=== PATIENT | female | born 1980 | race Caucasian/White ===

== ENCOUNTER 2019-05-22 19:53 | Emergency (ER) | payer SELFPAY ==
[2019-05-22 20:11] VITALS: BP 153/89
[2019-05-22] MEDS ORDERED: IBUPROFEN 600 MG TABLET PO ONE (21:42)
[2019-05-22] MEDS ORDERED: PENICILLIN V POTASSIUM 500 MG TABLET PO ONE (21:42)
[2019-05-22] MEDS ORDERED: LIDOCAINE 2% VISCOUS SOLN 20 ML UDCUP PO ONE (21:42)
--- NOTE | 2019-05-22 21:42 | ER Document Report ---
HPI - HPI Time Seen by Provider: 05/22/19 21:34 Pain Level: 4 Context: Patient is a 39-year-old female who presents to the emergency department with a chief complaint of tooth pain to teeth #13,14, 15, 20, 19, and 18. Patient has been dealing with this for the past few months. Patient has not seen a dentist in a while. She is new to the area and is looking for one. She has a past medical history of COPD and hepatitis C. Denies any difficulty breathing, shortness of breath, or any other symptoms at this time. She admits to taking some of her daughter's old amoxicillin to help with the pain, but has had little relief. - ROS Notes: REVIEW OF SYSTEMS: CONSTITUTIONAL : Denies recent illness. Denies recent unintentional weight loss. Denies fever, chills, or sweats. EENT: See HPI CARDIOVASCULAR: Denies chest pain. RESPIRATORY: Denies shortness of breath, cough, congestion, difficulty breathing, or wheezing. GASTROINTESTINAL: Denies nausea, vomiting, and diarrhea. Denies abdominal pain. Denies constipation. GENITOURINARY: Denies difficulty urinating, burning, blood in urine, urgency or frequency. MUSCULOSKELETAL: Denies neck and back pain. Denies joint pain or swelling. SKIN: Denies rash, itchiness, or lesions HEMATOLOGIC : Denies easy bruising or bleeding. LYMPHATIC: Denies swollen, painful, enlarged glands. NEUROLOGICAL: Denies no numbness or tingling denies weakness. Denies headache. Denies altered mental status. Denies alteration in speech. PSYCHIATRIC: Denies stress, anxiety, alteration in sleep patterns, or depression. All other systems reviewed and negative. - REPRODUCTIVE Reproductive: DENIES: : Past Medical History - Social History Smoking Status: Unknown if Ever Smoked Family History: Reviewed & Not Pertinent Vertical Provider Document - CONSTITUTIONAL Notes: PHYSICAL EXAMINATION: GENERAL: Appears well, healthy, well-nourished, no acute distress. HEAD: Normocephalic, atraumatic. EYES: PERRL, conjunctiva normal, all extraocular movements intact, sclera nonicteric ENT: Moist mucous membranes. Multiple dental caries noted throughout mouth. Sensitivity noted upon palpation of right lower teeth and right upper teeth. Multiple teeth missing. NECK: Supple, no noticeable swelling, redness, rash. Normal range of motion. LUNGS: Equal breath sounds bilaterally and clear to auscultation. No wheezes rales or rhonchi. CARDIOVASCULAR: S1-S2, regular rate, regular rhythm. Radial pulses 2+, normal. ABDOMEN: Normoactive bowel sounds. Soft, nontender, no guarding, no rebound tenderness, and no masses palpated. EXTREMITIES: Normal strength and range of motion, no pitting or edema. No cyanosis. NEUROLOGICAL: Moves all extremities upon command. Strength 5/5 in all extremities. PSYCH: Normal mood, normal affect. SKIN: Warm, dry. No rash, lesions, ulcerations noted. Normal skin turgor. - INFECTION CONTROL TRAVEL OUTSIDE OF THE [place] IN LAST 30 DAYS: No Course - Re-evaluation Re-evalutation: 05/22/19 21:42 Patient's physical exam and history is most consistent with a infected tooth. Patient is able to swallow, no facial swelling noted, airways pain, vital signs are normal. I do not suspect Sha's angina, peritonsilar abscess, or airway obstruction. The patient will be started on oral antibiotics. I have given the patient education on their antibiotics. Patient was given instructions to follow-up with a dentist this week. Return precautions were given. Verbal discharge instructions were given. Patient verbalized understanding. Patient is stable for discharge. - Vital Signs Vital signs: Temp Pulse Resp BP Pulse Ox 98.6 F 92 20 153/89 H 97 05/22/19 20:08 05/22/19 20:08 05/22/19 20:08 05/22/19 20:08 05/22/19 20:08 Discharge - Discharge Clinical Impression: Tooth pain Condition: Stable Disposition: HOME, SELF-CARE Instructions: Penicillin V K ([facility]), Toothache ([facility]) Additional Instructions: You have been seen in the emergency department for a toothache. You may take ibuprofen 600 mg every 6 hours as needed for the pain. You have also been given topical lidocaine. Placed that to the affected tooth as needed to help with pain. You have also been prescribed antibiotics. Please take the antibiotics as prescribed, even if you start to feel better. If you develop a fever greater than 100.4 F, or have any symptoms that are worrisome to you, please return to the emergency department. Please follow-up with a dentist this week in regards to your visit. [facility] to make an appointment. [phone] Prescriptions: Penicillin V Potassium [Penicillin Vk 500 mg Tablet] 500 mg PO Q6H #28 tablet
== END 2019-05-22 22:04 | disposition home or self-care (01) ==
LOC: ER 19:53
DX: K02.9 Dental caries, unspecified (principal); K08.89 Other specified disorders of teeth and supporting structures; J44.9 Chronic obstructive pulmonary disease, unspecified
CPT/HCPCS: 99282; J3490

== ENCOUNTER → 2019-08-25 | Outpatient (CLI) | payer MEDICAID ==
--- NOTE | 2019-08-25 12:41 | RADIOLOGY REPORT (SQ) ---
EXAM DESCRIPTION: CHEST PA/LATERAL COMPLETED DATE/TIME: 08/25/2019 12:28 pm REASON FOR STUDY: LUMBAGO WITH SCIATICA, LEFT SIDE;COUGH COMPARISON: None. EXAM PARAMETERS: NUMBER OF VIEWS: two views TECHNIQUE: Digital Frontal and Lateral radiographic views of the chest acquired. RADIATION DOSE: NA LIMITATIONS: none FINDINGS: LUNGS AND PLEURA: No consolidation, pleural effusion or pneumothorax. MEDIASTINUM AND HILAR STRUCTURES: No mediastinal or hilar contour abnormality. HEART AND VASCULAR STRUCTURES: The cardiac silhouette and pulmonary vasculature are within normal [place] its. BONES: No acute findings. HARDWARE: None in the chest. OTHER: No other finding. IMPRESSION: No acute cardiopulmonary process. TECHNICAL DOCUMENTATION: JOB ID: [id number] [employer]- All Rights Reserved Reading location - IP/workstation name: [email or web address]
--- NOTE | 2019-08-25 13:06 | RADIOLOGY REPORT (SQ) ---
EXAM DESCRIPTION: LUMBAR SPINE COMPLETE COMPLETED DATE/TIME: 08/25/2019 12:28 pm REASON FOR STUDY: LUMBAGO WITH SCIATICA, LEFT SIDE;COUGH M54.42 LUMBAGO WITH SCIATICA, LEFT SIDE R0 5 COUGH COMPARISON: None. NUMBER OF VIEWS: Five views including obliques. TECHNIQUE: AP, lateral, oblique, and sacral radiographic images acquired of the lumbar spine. LIMITATIONS: Motion artifact limits the examination. FINDINGS: MINERALIZATION: Normal. SEGMENTATION: Transitional lumbar vertebra at L5 on the right. ALIGNMENT: Normal. VERTEBRAE: Maintained height. No fracture or worrisome bone lesion. DISCS: Preserved height. Small anterior osteophytes off of the mid-lower lumbar vertebrae. POSTERIO R ELEMENTS: Pedicles and facets are intact. No pars defect or posterior arch defects. HARDWARE: None in the spine. PARASPINAL SOFT TISSUES: Normal. PELVIS: Intact as visualized. No fractures or worrisome bone lesions. SI joints intact. OTHER: An 8 mm calculus overlies the mid-lower pole of the left kidney. IMPRESSION: 1. Motion artifact limits examination. 2. Minimal to very slight osteophytic spurring mid-lower lumbar spine. 3. No acute osseous findings. 4. Left renal calculus. TECHNICAL DOCUMENTATION: JOB ID: [id number] [employer]- All Rights Reserved Reading location - IP/workstation name: [email or web address]
== END ==
LOC: OD 12:06
PROVIDERS: ATTEND Nurse Practitioner Family
DX: M54.42 Lumbago with sciatica, left side (principal); R05 Cough; N20.0 Calculus of kidney
CPT/HCPCS: 71046; 72110

== ENCOUNTER 2019-09-09 08:55 | Day surgery (SDC) | payer MEDICAID ==
[2019-09-09] MEDS ORDERED: ONDANSETRON HCL INJ/PF 4 MG/2 ML SDV IV PRN (11:36)
[2019-09-09] MEDS ORDERED: PROPOFOL INJ 200 MG/20 ML VIAL IV ONE (11:47)
[2019-09-09] MEDS ORDERED: MIDAZOLAM 2 MG/2 ML INJ ONE (11:57)
--- NOTE | 2019-09-09 12:22 | Operative Report ---
Operative Report DATE OF SURGERY: 09/09/19 Operative Report: The risks benefits and alternatives of the procedure explained to the patient in detail and informed consent is obtained.A GIF Olympus video scope was inserted into the patient's mouth and hypopharynx, the esophagus is identified intubated and insufflated, the area the scope was then advanced through the esophagus stomach and duodenum ,retroflexion maneuver is done, the esophagus stomach and first and second portions of the duodenum examined. PREOPERATIVE DIAGNOSIS: Dysphagia POSTOPERATIVE DIAGNOSIS: Esophageal ulcer likely due to pill induced esophagitis. Esophagitis versus Jay's status post biopsy. Gastritis status post biopsy OPERATION: EGD with biopsy SURGEON: JUAN CARLOS BOWMAN ANESTHESIA: LMAC TISSUE REMOVED OR ALTERED: As noted above. COMPLICATIONS: None. ESTIMATED BLOOD LOSS: None. INTRAOPERATIVE FINDINGS: As noted above. PROCEDURE: Patient tolerated the procedure well. No immediate postprocedure complications are noted. Patient is discharged in good condition. Discharge date 09/09/2019. Discharge diet: Regular. Discharge activity: Regular. 2 to 3-week follow-up to discuss findings. Patient is instructed to call the office or proceed to the emergency room should there be any further questions. Wait on the pathology.
[2019-09-09 13:32] VITALS: BP 174/95
== END 2019-09-09 13:20 | disposition home or self-care (01) ==
LOC: OROUT 08:55
PROVIDERS: ATTEND Internal Medicine Gastroenterology
DX: K22.10 Ulcer of esophagus without bleeding (principal); K29.50 Unspecified chronic gastritis without bleeding; B18.2 Chronic viral hepatitis C
CPT/HCPCS: 43239; 88342 ×2; 88305 ×2; 00731; J2250; J2704; 731

== ENCOUNTER 2019-09-18 17:51 | Emergency (ER) | payer MEDICAID ==
--- NOTE | 2019-09-18 19:00 | ER Document Report ---
ED Medical Screen (RME) - General Chief Complaint: Possible Kidney Stone Stated Complaint: POSSIBLE KIDNEY STONE Time Seen by Provider: 09/18/19 18:57 Primary Care Provider: BYRON OBRIEN FNP-C [Primary Care Provider] - Follow up as needed Mode of Arrival: Ambulatory Information source: Patient Notes: 39-year-old female presented to ED for complaint of left flank pain. She states she went to the primary care about a week and half to 2 weeks ago and they told her she had blood in her urine and will make a referral to a urologist. She states that the pain is getting so bad she had to come to the emergency room and find it was going on. Patient is alert oriented respirations regular nonlabored speaking in full sentences. She does have a history of kidney stones. She denies any nausea or vomiting. Patient states she smokes between 1/2 pack to a pack a day, she does not drink any alcohol or use any illicit drugs. I have greeted and performed a rapid initial assessment of this patient. A comprehensive ED assessment and evaluation of the patient, analysis of test results and completion of medical decision making process will be conducted by an additional ED providers. TRAVEL OUTSIDE OF THE [place] IN LAST 30 DAYS: No - Related Data Allergies/Adverse Reactions: Sulfa (Sulfonamide Antibiotics) Allergy (Verified 09/09/19 09:31) Past Medical History - Past Medical History Cardiac Medical History: Denies: Hx Coronary Artery Disease, Hx Heart Attack, Hx Hypertension Pulmonary Medical History: Denies: Hx Asthma, Hx Bronchitis, Hx COPD, Hx Pneumonia Neurological Medical History: Denies: Hx Cerebrovascular Accident, Hx Seizures Renal/ Medical History: Denies: Hx Peritoneal Dialysis Musculoskeltal Medical History: Reports Hx Arthritis - Immunizations Hx Diphtheria, Pertussis, Tetanus Vaccination: No Doctor's Discharge - Discharge Referrals: BYRON OBRIEN FNP-C [Primary Care Provider] - Follow up as needed
[2019-09-18 19:56] LABS: APPEARANCE,URINE CLEAR; BILIRUBIN,URINE NEGATIVE (NEGATIVE); COLOR,URINE YELLOW; GLUCOSE, URINE NEGATIVE (NEGATIVE); KETONES,URINE NEGATIVE (NEGATIVE); PROTEIN,URINE NEGATIVE (NEGATIVE); URINE SPECIFIC GRAVITY 1.017; UROBILINOGEN,URINE NEGATIVE mg/dL (<2.0)
[2019-09-18 20:06] LABS: ABSOLUTE BASOPHILS # (AUTO) 0.1 10^3/uL (0.0-0.2); ABSOLUTE EOSINOPHILS # (AUTO) 0.3 10^3/uL (0.0-0.6); ABSOLUTE LYMPHOCYTES (AUTO) 5.2 10^3/uL (0.5-4.7); ABSOLUTE MONOCYTES (AUTO) 0.9 10^3/uL (0.1-1.4); ABSOLUTE NEUT (AUTO) 8.9 10^3/uL (1.7-8.2); BASOPHILS % (AUTO) 0.8 % (0-2); EOSINOPHILS % (AUTO) 2.1 % (0-6); HEMATOCRIT 44.4 % (36.0-47.0); HEMOGLOBIN 14.6 g/dL (12.0-15.5); LYMPHOCYTES % (AUTO) 33.5 % (13-45); MEAN CORPUSCULAR HEMOGLOBIN 29.7 pg (27.0-33.4); MEAN CORPUSCULAR VOLUME 90 fl (80-97); MONOCYTES % (AUTO) 5.9 % (3-13); RED BLOOD COUNT 4.94 10^6/uL (3.72-5.28); RED CELL DISTRIBUTION WIDTH 14.3 % (11.5-14.0); SEGMENTED NEUTROPHILS % (AUTO) 57.7 % (42-78); TOTAL CELLS COUNTED % (AUTO) 100 %; WHITE BLOOD COUNT 15.4 10^3/uL (4.0-10.5)
[2019-09-18 20:09] LABS: ALBUMIN 4.4 g/dL (3.5-5.0); ALKALINE PHOSPHATASE 86 U/L (38-126); ANION GAP 9 (5-19); ASPARTATE AMINO TRANSFERASE 45 U/L (14-36); BILIRUBIN,DIRECT 0.2 mg/dL (0.0-0.4); BILIRUBIN,TOTAL 0.3 mg/dL (0.2-1.3); BLOOD UREA NITROGEN 16 mg/dL (7-20); CALCIUM 9.7 mg/dL (8.4-10.2); CARBON DIOXIDE 25 mmol/L (22-30); CHLORIDE 105 mmol/L (98-107); GLUCOSE 102 mg/dL (75-110); POTASSIUM 4.9 mmol/L (3.6-5.0); TOTAL PROTEIN 8.5 g/dL (6.3-8.2)
[2019-09-18 20:23] LABS: PLATELET COUNT 373 10^3/uL (150-450)
--- NOTE | 2019-09-18 20:47 | RADIOLOGY REPORT (SQ) ---
EXAM DESCRIPTION: US RETROPERITONEUM COMPLETED DATE/TME: 09/18/2019 19:01 CLINICAL HISTORY: 39 years Female Left flank pain, history kidney stones COMPARISON: None. TECHNIQUE: Transabdominal grayscale imaging performed to evaluate the kidneys and urinary bladder. FINDINGS: Right kidney measures 10 x 5.4 cm. No hydronephrosis mass or calculus. Left kidney measures 10 x 5.2 x 5.8 cm. Echogenic foci are noted which may reflect nonobstructing stones. Bilateral ureteral jets are identified. Bladder is incompletely distended. Volume 97 mL. IMPRESSION: No evidence of hydronephrosis Probable nephrolithiasis on the left
--- NOTE | 2019-09-19 01:02 | ER Document Report ---
ED General - General Chief Complaint: Flank Pain Stated Complaint: POSSIBLE KIDNEY STONE Time Seen by Provider: 09/18/19 18:57 Primary Care Provider: BYRON OBRIEN FNP-C [Primary Care Provider] - Follow up as needed Mode of Arrival: Ambulatory TRAVEL OUTSIDE OF THE [place] IN LAST 30 DAYS: No - HPI Notes: Patient is a 39-year-old female who presents emergency department for evaluation of left flank pain. She states she was seen by her primary care provider 2 weeks ago. At that point she had blood in her urine, per the physician, and findings consistent with a possible kidney stone. She has a history of kidney stones. She has been referred on to urology, but her pain still persists. She is very vague when she describes her pain. She states repeatedly it feels like "there is a stone floating in there" and it hurts "in her kidney." She denies any fevers or chills. No nausea or vomiting. She states she has had some urinary frequency. No gross hematuria. Normal bowel movements. No other acute complaints or concerns. She states that drinking fluids seems to make her pain worse, nothing seems to make it better. - Related Data Allergies/Adverse Reactions: Sulfa (Sulfonamide Antibiotics) Allergy (Verified 09/09/19 09:31) Home Medications: List reviewed, please see note Past Medical History - General Information source: Patient - Social History Smoking Status: Current Every Day Smoker Chew tobacco use (# tins/day): No Frequency of alcohol use: None Drug Abuse: None Family History: Reviewed & Not Pertinent Patient has suicidal ideation: No Patient has homicidal ideation: No - Past Medical History Cardiac Medical History: Denies: Hx Coronary Artery Disease, Hx Heart Attack, Hx Hypertension Pulmonary Medical History: Denies: Hx Asthma, Hx Bronchitis, Hx COPD, Hx Pneumonia Neurological Medical History: Denies: Hx Cerebrovascular Accident, Hx Seizures Renal/ Medical History: Reports: Hx Kidney Stones. Denies: Hx Peritoneal Dialysis Musculoskeletal Medical History: Reports Hx Arthritis Psychiatric Medical History: Reports: Hx Bipolar Disorder - Immunizations Hx Diphtheria, Pertussis, Tetanus Vaccination: No Review of Systems - Review of Systems Constitutional: No symptoms reported EENT: No symptoms reported Cardiovascular: No symptoms reported Respiratory: No symptoms reported Gastrointestinal: No symptoms reported Genitourinary: See HPI Female Genitourinary: No symptoms reported Musculoskeletal: No symptoms reported Skin: No symptoms reported Neurological/Psychological: No symptoms reported Physical Exam - Vital signs Vitals: Temp Pulse BP Pulse Ox 98.2 F 101 H 143/118 H 100 09/18/19 18:58 09/18/19 18:58 09/18/19 18:58 09/18/19 18:58 - Notes Notes: Vital signs reviewed, please refer to chart. Head is normocephalic, atraumatic. Pupils equal round, reactive to light. Neck is supple without meningismus. Heart is regular rate and rhythm. Lungs are clear to auscultation bilaterally. Abdomen is soft, mildly tender in the left upper quadrant, normoactive bowel sounds throughout. No CVA tenderness. Extremities without cyanosis, clubbing. Posterior calves are nontender. Peripheral pulses are equal. Skin is warm and dry. Patient is awake, alert, neurological exam is nonfocal. Course - Re-evaluation Re-evalutation: 09/19/19 01:00 Patient presents emergency department for evaluation. She is had no fevers. She complains of flank pain consistent with possible kidney stone. Ultrasound shows no significant hydronephrosis. She has no blood in her urine. Her renal function is normal. At this point I do not have a high suspicion for a significant kidney stone, certainly not one that is been obstructive for over a week. We will send her home with a small amount of pain medication. She is to follow-up with urology as scheduled, return to the ED with worsening. - Vital Signs Vital signs: Temp Pulse Resp BP Pulse Ox 98.2 F 101 H 143/118 H 100 09/18/19 18:58 09/18/19 18:58 09/18/19 18:58 09/18/19 18:58 - Laboratory Result Diagrams: 09/18/19 19:40 09/18/19 19:40 Laboratory results interpreted by me: 09/18/19 09/18/19 09/18/19 19:40 19:40 19:40 WBC 15.4 H RDW 14.3 H Absolute Neuts (auto) 8.9 H Absolute Lymphs (auto) 5.2 H AST 45 H Total Protein 8.5 H Leukocyte Esterase Rfl TRACE H - Diagnostic Test Radiology reviewed: Reports reviewed Radiology results interpreted by me: 09/19/19 01:01 Renal Ultrasound 09/18/19 19:01 IMPRESSION: No evidence of hydronephrosis Probable nephrolithiasis on the left Discharge - Discharge Clinical Impression: Left flank pain Condition: Stable Disposition: HOME, SELF-CARE Instructions: Flank Pain ([facility]) Additional Instructions: At this point, there are no signs of obstructive kidney stones or urinary blood/infection on evaluation. You should still follow-up with urology as scheduled. If you develop fevers, vomiting, increased pain, or any other new or concerning symptoms, please return immediately to the emergency department for evaluation. Referrals: BYRON OBRIEN FNP-C [Primary Care Provider] - Follow up as needed
[2019-09-19 01:28] VITALS: BP 151/101
== END 2019-09-19 01:32 | disposition home or self-care (01) ==
LOC: ER 17:51
DX: R10.9 Unspecified abdominal pain (principal); R10.812 Left upper quadrant abdominal tenderness; R35.0 Frequency of micturition; F17.200 Nicotine dependence, unspecified, uncomplicated; Z87.442 Personal history of urinary calculi; Z88.2 Allergy status to sulfonamides
CPT/HCPCS: 36415; 76770; 80053; 81001; 83690; 85025; 87086; 87088; 87186; 99284

== ENCOUNTER 2019-10-08 14:39 | Emergency (ER) | payer MEDICAID ==
[2019-10-08] MEDS ORDERED: ASPIRIN 81 MG TABLET, CHEWABLE PO ONE (15:11)
--- NOTE | 2019-10-08 15:15 | ER Document Report ---
ED Medical Screen (RME) - General Chief Complaint: High Blood Pressure Stated Complaint: HIGH BLOOD PRESSURE Time Seen by Provider: 10/08/19 15:05 Primary Care Provider: BYRON OBRIEN FNP-C [Primary Care Provider] - Follow up as needed TRAVEL OUTSIDE OF THE [place] IN LAST 30 DAYS: No - HPI Notes: 10/08/19 15:14 39-year-old female to the emergency department with complaints of elevated blood pressure over the past several days. She also states that she has been having mild left-sided chest pain and shortness of breath. She states that she has been waking up in the middle the night feeling short of breath. She denies any leg swelling. She denies any exertional chest pain or shortness of breath. She has never had a heart attack. She does smoke. She was just recently put on chlorthalidone by her primary care physician yesterday. The highest blood pressure reading that she had at home was 170/100. Performed a brief medical screening exam on the patient and that she will need further evaluation and management by me inside provider. 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 - Related Data Allergies/Adverse Reactions: Sulfa (Sulfonamide Antibiotics) Allergy (Verified 10/08/19 15:05) Past Medical History - Social History Chew tobacco use (# tins/day): No Frequency of alcohol use: None Drug Abuse: None - Past Medical History Cardiac Medical History: Denies: Hx Coronary Artery Disease, Hx Heart Attack, Hx Hypertension Pulmonary Medical History: Denies: Hx Asthma, Hx Bronchitis, Hx COPD, Hx Pneumonia Neurological Medical History: Denies: Hx Cerebrovascular Accident, Hx Seizures Renal/ Medical History: Reports: Hx Kidney Stones. Denies: Hx Peritoneal Dialysis Musculoskeltal Medical History: Reports Hx Arthritis Psychiatric Medical History: Reports: Hx Bipolar Disorder - Immunizations Hx Diphtheria, Pertussis, Tetanus Vaccination: No Physical Exam - Vital signs Vitals: Temp Pulse Resp BP Pulse Ox 98.1 F 90 20 148/107 H 97 10/08/19 14:48 10/08/19 14:48 10/08/19 14:48 10/08/19 14:48 10/08/19 14:48 Course - Vital Signs Vital signs: Temp Pulse Resp BP Pulse Ox 98.1 F 90 20 148/107 H 97 10/08/19 14:48 10/08/19 14:48 10/08/19 14:48 10/08/19 14:48 10/08/19 14:48 Doctor's Discharge - Discharge Referrals: BYRON OBRIEN FNP-C [Primary Care Provider] - Follow up as needed
--- NOTE | 2019-10-08 15:34 | RADIOLOGY REPORT (SQ) ---
EXAM DESCRIPTION: CHEST 2 VIEWS COMPLETED DATE/TIME: 10/08/2019 3:25 pm REASON FOR STUDY: chest pain, elevated blood pressure COMPARISON: Two-view chest 08/25/2019 EXAM PARAMETERS: NUMBER OF VIEWS: two views TECHNIQUE: Digital Frontal and Lateral radiographic views of the chest acquired. RADIATION DOSE: NA LIMITATIONS: none FINDINGS: LUNGS AND PLEURA: No opacities, masses or pneumothorax. No pleural effusion. MEDIASTINUM AND HILAR STRUCTURES: No masses or contour abnormalities. HEART AND VASCULAR STRUCTURES: Heart normal size. No evidence for failure. BONES: No acute findings. HARDWARE: None in the chest. OTHER: No other significant finding. IMPRESSION: NO ACUTE RADIOGRAPHIC FINDING IN THE CHEST. TECHNICAL DOCUMENTATION: JOB ID: [id number] [employer]- All Rights Reserved Reading location - IP/workstation name: [email or web address]
[2019-10-08 17:02] LABS: ABSOLUTE BASOPHILS # (AUTO) 0.2 10^3/uL (0.0-0.2); ABSOLUTE EOSINOPHILS # (AUTO) 0.5 10^3/uL (0.0-0.6); ABSOLUTE LYMPHOCYTES (AUTO) 4.5 10^3/uL (0.5-4.7); ABSOLUTE MONOCYTES (AUTO) 0.8 10^3/uL (0.1-1.4); ABSOLUTE NEUT (AUTO) 9.5 10^3/uL (1.7-8.2); EOSINOPHILS % (AUTO) 3.2 % (0-6); HEMATOCRIT 42.1 % (36.0-47.0); HEMOGLOBIN 14.4 g/dL (12.0-15.5); LYMPHOCYTES % (AUTO) 29.4 % (13-45); MEAN CORPUSCULAR HEMOGLOBIN 30.3 pg (27.0-33.4); MEAN CORPUSCULAR HGB CONC 34.2 g/dL (32.0-36.0); MEAN CORPUSCULAR VOLUME 89 fl (80-97); MONOCYTES % (AUTO) 5.2 % (3-13); PLATELET COUNT 410 10^3/uL (150-450); RED BLOOD COUNT 4.76 10^6/uL (3.72-5.28); RED CELL DISTRIBUTION WIDTH 14.1 % (11.5-14.0); SEGMENTED NEUTROPHILS % (AUTO) 61.2 % (42-78); TOTAL CELLS COUNTED % (AUTO) 100 %; WHITE BLOOD COUNT 15.5 10^3/uL (4.0-10.5)
--- NOTE | 2019-10-08 18:11 | EKG REPORT ---
SEVERITY:- NORMAL ECG - SINUS RHYTHM : Confirmed by: Gregorio Dias MD 08-Oct-2019 18:10:11
[2019-10-08 19:18] LABS: ALBUMIN 4.5 g/dL (3.5-5.0); ALKALINE PHOSPHATASE 89 U/L (38-126); ANION GAP 11 (5-19); ASPARTATE AMINO TRANSFERASE 40 U/L (14-36); BILIRUBIN,DIRECT 0.2 mg/dL (0.0-0.4); BILIRUBIN,TOTAL 0.3 mg/dL (0.2-1.3); BLOOD UREA NITROGEN 19 mg/dL (7-20); CALCIUM 11.1 mg/dL (8.4-10.2); CARBON DIOXIDE 25 mmol/L (22-30); CHLORIDE 104 mmol/L (98-107); GLUCOSE 102 mg/dL (75-110); POTASSIUM 4.4 mmol/L (3.6-5.0); TOTAL PROTEIN 8.4 g/dL (6.3-8.2)
[2019-10-08] MEDS ORDERED: IBUPROFEN 800 MG TABLET PO ONE (19:45)
--- NOTE | 2019-10-08 19:48 | ER Document Report ---
ED General - General Chief Complaint: High Blood Pressure Stated Complaint: HIGH BLOOD PRESSURE Time Seen by Provider: 10/08/19 15:05 Primary Care Provider: BYRON OBRIEN FNP-C [Primary Care Provider] - Follow up as needed Notes: RME NOTE: 39-year-old female to the emergency department with complaints of elevated blood pressure over the past several days. She also states that she has been having mild left-sided chest pain and shortness of breath. She states that she has been waking up in the middle the night feeling short of breath. She denies any leg swelling. She denies any exertional chest pain or shortness of breath. She has never had a heart attack. She does smoke. She was just recently put on ch lorthalidone by her primary care physician yesterday. The highest blood pressure reading that she had at home was 170/100. MY HPI: Patient voices she also takes propranolol for her blood pressure. States the only medical problem she has is anxiety and hypertension. States she did have a sharp pain in the left side of her chest intermittently. States it was happening when she arrived to the emergency department but is no longer happening. Initial labs were ordered by RME provider. Patient also voiced an intermittent headache. States she currently does not have a headache but has had one in the last couple of days. Patient voices she is hungry and would like to know if she can eat something. TRAVEL OUTSIDE OF THE [place] IN LAST 30 DAYS: No - Related Data Allergies/Adverse Reactions: Sulfa (Sulfonamide Antibiotics) Allergy (Verified 10/08/19 15:05) Past Medical History - General Information source: Patient - Social History Smoking Status: Current Every Day Smoker Chew tobacco use (# tins/day): No Frequency of alcohol use: None Drug Abuse: None Family History: Reviewed & Not Pertinent Patient has suicidal ideation: No Patient has homicidal ideation: No - Past Medical History Cardiac Medical History: Denies: Hx Coronary Artery Disease, Hx Heart Attack, Hx Hypertension Pulmonary Medical History: Denies: Hx Asthma, Hx Bronchitis, Hx COPD, Hx Pneumonia Neurological Medical History: Denies: Hx Cerebrovascular Accident, Hx Seizures Renal/ Medical History: Reports: Hx Kidney Stones. Denies: Hx Peritoneal Dialysis Musculoskeletal Medical History: Reports Hx Arthritis Psychiatric Medical History: Reports: Hx Bipolar Disorder Past Surgical History: Reports: Hx Hysterectomy - Immunizations Hx Diphtheria, Pertussis, Tetanus Vaccination: No Review of Systems - Review of Systems Constitutional: denies: Fever EENT: No symptoms reported Cardiovascular: See HPI Respiratory: See HPI Gastrointestinal: No symptoms reported Genitourinary: No symptoms reported Female Genitourinary: No symptoms reported Musculoskeletal: No symptoms reported Skin: No symptoms reported Hematologic/Lymphatic: No symptoms reported Neurological/Psychological: No symptoms reported Physical Exam - Vital signs Vitals: Temp Pulse Resp BP Pulse Ox 98.1 F 90 20 148/107 H 97 10/08/19 14:48 10/08/19 14:48 10/08/19 14:48 10/08/19 14:48 10/08/19 14:48 - Notes Notes: GENERAL: Alert, interacts well. No acute distress. HEAD: Normocephalic, atraumatic. EYES: Pupils equal, round, and reactive to light. Extraocular movements intact. ENT: Oral mucosa moist, tongue midline. NECK: Full range of motion. Supple. Trachea midline. LUNGS: Clear to auscultation bilaterally, no wheezes, rales, or rhonchi. No respiratory distress. HEART: Regular rate and rhythm. No murmur ABDOMEN: Obese, soft, non-tender. Non-distended. Bowel sounds present in all 4 quadrants. EXTREMITIES: Moves all 4 extremities spontaneously. No edema, normal radial and dorsalis pedis pulses bilaterally. No cyanosis. BACK: no cervical, thoracic, lumbar midline tenderness. No saddle anesthesia, normal distal neurovascular exam. NEUROLOGICAL: Alert and oriented x3. Normal speech. cranial nerves II through XII grossly intact PSYCH: Normal affect, normal mood. SKIN: Warm, dry, normal turgor. No rashes or lesions noted. Course - Re-evaluation Re-evalutation: 10/08/19 19:45 Patient has repeatedly asked me if she can follow-up with her primary care provider for repeat troponin. I discussed with her I recommend that she gets a 3-hour troponin in the emergency department based on her chest pain. Patient voices "while I do not have chest pain anymore." Patient voices she also does no longer has a headache. Patient voices she does not understand why she has to stay in the emergency department. I have attempted to discuss with her multiple times my suggestion of following up with a repeat troponin here in the emergency department. Patient voices "you are making my head to hurt." Patient voices she does have a history of anxiety. States she typically takes diazepam. Patient is requesting more aspirin for a headache. I discussed with patient unfortunately she cannot have aspirin at this time she only had her initial dose 3 hours ago. Patient voices she feels as though the aspirin is helping with her blood pressure. Patient again voices she wants to follow-up with her primary care provider for repeat troponin levels. I discussed with patient at length at bedside if she would like to leave we are not keeping her here. I have asked her to sign AGAINST MEDICAL ADVICE paperwork if she does decide to leave. Patient then voices she will stay for repeat troponin. Patient voices she would like something for a "returning headache because you all are driving me crazy!" Patient states she cannot have Tylenol because she has a history of hepatitis, discussed use of Motrin. Patient is in agreement with plan. 10/08/19 23:24 Laboratory 10/08/19 10/08/19 10/08/19 16:47 16:47 16:47 WBC 15.5 H RBC 4.76 Hgb 14.4 Hct 42.1 MCV 89 MCH 30.3 MCHC 34.2 RDW 14.1 H Plt Count 410 Lymph % (Auto) 29.4 [place] % (Auto) 5.2 Eos % (Auto) 3.2 Baso % (Auto) 1.0 Absolute Neuts (auto) 9.5 H Absolute Lymphs (auto) 4.5 Absolute Monos (auto) 0.8 Absolute Eos (auto) 0.5 Absolute Basos (auto) 0.2 Seg Neutrophils % 61.2 Sodium Cancelled Potassium Cancelled Chloride Cancelled Carbon Dioxide Cancelled Anion Gap Cancelled BUN Cancelled Creatinine Cancelled Est GFR ( Amer) Cancelled Est GFR (Non-Af Amer) Cancelled Est GFR (MDRD) Non-Af Cancelled Glucose Cancelled Calcium Cancelled Total Bilirubin Cancelled Direct Bilirubin Cancelled Neonat Total Bilirubin Cancelled Neonat Direct Bilirubin Cancelled Neonat Indirect Bili Cancelled AST Cancelled ALT Cancelled Alkaline Phosphatase Cancelled Troponin I Cancelled NT-Pro-B Natriuret Pep Total Protein Cancelled Albumin Cancelled EGFR Cancelled 10/08/19 10/08/19 10/08/19 18:50 18:50 18:50 WBC RBC Hgb Hct MCV MCH MCHC RDW Plt Count Lymph % (Auto) [place] % (Auto) Eos % (Auto) Baso % (Auto) Absolute Neuts (auto) Absolute Lymphs (auto) Absolute Monos (auto) Absolute Eos (auto) Absolute Basos (auto) Seg Neutrophils % Sodium 140.0 Potassium 4.4 Chloride 104 Carbon Dioxide 25 Anion Gap 11 BUN 19 Creatinine 0.83 Est GFR ( Amer) > 60 Est GFR (Non-Af Amer) Est GFR (MDRD) Non-Af > 60 Glucose 102 Calcium 11.1 H Total Bilirubin 0.3 Direct Bilirubin 0.2 Neonat Total Bilirubin Not Reportable Neonat Direct Bilirubin Not Reportable Neonat Indirect Bili Not Reportable AST 40 H ALT 45 Alkaline Phosphatase 89 Troponin I < 0.012 NT-Pro-B Natriuret Pep 37 Total Protein 8.4 H Albumin 4.5 EGFR 10/08/19 21:59 WBC RBC Hgb Hct MCV MCH MCHC RDW Plt Count Lymph % (Auto) [place] % (Auto) Eos % (Auto) Baso % (Auto) Absolute Neuts (auto) Absolute Lymphs (auto) Absolute Monos (auto) Absolute Eos (auto) Absolute Basos (auto) Seg Neutrophils % Sodium Potassium Chloride Carbon Dioxide Anion Gap BUN Creatinine Est GFR ( Amer) Est GFR (Non-Af Amer) Est GFR (MDRD) Non-Af Glucose Calcium Total Bilirubin Direct Bilirubin Neonat Total Bilirubin Neonat Direct Bilirubin Neonat Indirect Bili AST ALT Alkaline Phosphatase Troponin I Cancelled NT-Pro-B Natriuret Pep Total Protein Albumin EGFR Chest X-Ray 10/08/19 15:10 IMPRESSION: NO ACUTE RADIOGRAPHIC FINDING IN THE CHEST. Upon my assessment patient is denying respiratory distress or chest pain. She states usually her respiratory distress happens in the middle of night. States she feels as though she snores and "wakes myself up." I discussed with her at length the need for close follow-up with primary care provider and a sleep study. Patient voices understanding. Patient has had 2- troponins in the emergency department. Patient's heart score is at 2 at this time. Based on risk factors. Patient's blood pressure has remained in the 140s systolic throughout her visit. I discussed with patient to continue taking medications as prescribed by her primary care provider. Of also discussed close follow-up with cardiology with close return precautions. Patient voices understanding, stable for discharge. - Vital Signs Vital signs: Temp Pulse Resp BP Pulse Ox 98.5 F 90 18 147/94 H 96 10/08/19 20:01 10/08/19 14:48 10/08/19 20:01 10/08/19 20:01 10/08/19 20:01 - Laboratory Result Diagrams: 10/08/19 16:47 10/08/19 18:50 Laboratory results interpreted by me: 10/08/19 10/08/19 16:47 18:50 WBC 15.5 H RDW 14.1 H Absolute Neuts (auto) 9.5 H Calcium 11.1 H AST 40 H Total Protein 8.4 H Discharge - Discharge Clinical Impression: Chest pain Qualifiers: Chest pain type: unspecified Qualified Code(s): R07.9 - Chest pain, unspecified Condition: Stable Disposition: HOME, SELF-CARE Instructions: Chest Pain of Unclear Cause ([facility]) Additional Instructions: As we discussed you have been seen and treated in the emergency department for your chest pain and suspected high blood pressure. Your blood pressure readings have been stable at today's visit. Please make sure you are taking your medications as prescribed by your doctor. Please also make sure you follow-up with your doctor in the next 12 to 24 hours. I have also provided you phone numbers for cardiology. Follow-up with them as well. Please return to the emergency room for any concerns. Forms: Return to Work Referrals: BYRON OBRIEN FNP-C [Primary Care Provider] - Follow up as needed HUMBERTO LOVING MD [EMERITUS] - Follow up as needed
[2019-10-09 00:03] VITALS: BP 138/72
== END 2019-10-09 00:08 | disposition home or self-care (01) ==
LOC: ER 14:39
DX: R07.9 Chest pain, unspecified (principal); I10 Essential (primary) hypertension; R06.02 Shortness of breath; R51 Headache; F17.200 Nicotine dependence, unspecified, uncomplicated; F41.9 Anxiety disorder, unspecified; Z88.2 Allergy status to sulfonamides
CPT/HCPCS: 93005; 36415; 85025; 80053; 84484; 83880; 71046; 93010; J3490; 99284

== ENCOUNTER → 2020-01-19 | Outpatient (CLI) | payer MEDICAID ==
--- NOTE | 2020-01-19 11:23 | RADIOLOGY REPORT (SQ) ---
EXAM DESCRIPTION: FOOT RIGHT COMPLETE; T SPINE AP/LAT COMPLETED DATE/TIME: 01/19/2020 9:38 am REASON FOR STUDY: RT FOOT PAIN COMPARISON: None. FINDINGS: Two view thoracic spine: Normal appearance. Normal alignment. No fracture or bone lesio n. Preserved disc spaces. No significant osteophytes. Soft tissues normal. Two views right foot: Prominent calcaneal bone spur. Bones otherwise intact. TECHNICAL DOCUMENTATION: JOB ID: [id number] Reading location - IP/workstation name: [email or web address]
--- NOTE | 2020-01-19 11:23 | RADIOLOGY REPORT (SQ) ---
EXAM DESCRIPTION: FOOT RIGHT COMPLETE; T SPINE AP/LAT COMPLETED DATE/TIME: 01/19/2020 9:38 am REASON FOR STUDY: RT FOOT PAIN COMPARISON: None. FINDINGS: Two view thoracic spine: Normal appearance. Normal alignment. No fracture or bone lesio n. Preserved disc spaces. No significant osteophytes. Soft tissues normal. Two views right foot: Prominent calcaneal bone spur. Bones otherwise intact. TECHNICAL DOCUMENTATION: JOB ID: [id number] Reading location - IP/workstation name: [email or web address]
== END ==
LOC: OD 09:12
PROVIDERS: ATTEND Nurse Practitioner Family
DX: M79.671 Pain in right foot (principal); M54.6 Pain in thoracic spine; M77.31 Calcaneal spur, right foot
CPT/HCPCS: 72070